=== PATIENT | male | born 1960 | race African-American/Black ===

== ENCOUNTER 2017-01-24 18:52 | Emergency (ER) | payer BC, OTHER ==
[~2017-01-24] VITALS: Ht 185.4 cm; Wt 132.0 kg
[~2017-01-24 18:52] MED LIST: EZET10TA3 PO; IBUP400T22 PO
[2017-01-24 18:59] VITALS: Ht 185.4 cm; Wt 132.0 kg
[2017-01-24] MEDS ORDERED: TRIMETHOPRIM/SULFAMETHOX (DS) TAB PO ONE (19:30)
--- NOTE | 2017-01-24 19:51 | RADRPT ---
PROCEDURE: US DVT. CLINICAL INDICATION: Redness and swelling of the left leg TECHNIQUE: Multiple longitudinal and transverse images of the left lower extremity veins were obta ined with enamorado scale and color Doppler imaging. 2D grayscale measurements with compression, color D oppler flow, and augmentation was performed. The calf veins were interrogated as well. COMPARISON: No prior studies are available for comparison. FINDINGS: The left common femoral, superficial femoral and popliteal veins are normally compressible throughou t. Color flow demonstrates normal filling of the vessel. Normal waveforms are visualized and there is normal response to augmentation. The calf veins are visualized and are within normal limits. There is mild edema within the subcutaneous soft tissues within the calf. IMPRESSION: 1. No evidence of a deep vein thrombosis involving the left lower extremity. 2. Mild edema within the subcutaneous soft tissues within the calf. RPTAT: QQ .Ligia Melissa MD, Date Time Electronically viewed and signed by .Ligia Melissa MD, on 01/24/2017 19:51 .T/
[2017-01-24] MEDS ORDERED: SULF1TAB31 PO (20:34)
[2017-01-24 20:38] VITALS: BP 142/64; PULSE 83; RESP 18; TEMP 98
--- NOTE | 2017-01-24 21:49 | ERD ---
ER Documentation Chief Complaint Date/Time DATE: 01/24/17 TIME: 21:48 Chief Complaint l calf and leg redness and swelling for past 2 weeks, pmd said go to er HPI Patient is a 56-year-old male with no medical problems who presents with left calf redness and swelling. He has had this for the past 2 weeks. He said that it started a few months ago when he was getting an itchy leg and he is scratching a lot. He was given Keflex by his primary doctor for the past 3 days but has had no fevers. He called his primary doctor today who sent him to the emergency department to rule out a DVT with ultrasound. Upon review of old medical records the patient one previous visit to the ER in 2006. ROS All systems reviewed and are negative except as per history of present illness. Medications Home Meds Active Scripts Sulfamethoxazole/Trimethoprim* (Bactrim Ds* Tablet) 1 Each Tablet, 1 TAB PO BID , #14 TAB Prov:JAMIE JAMESON MD 01/24/17 Reported Medications Ibuprofen* (Ibuprofen*) 400 Mg Tablet, 400 MG PO TID 06/23/11 Ezetimibe* (Zetia*) 10 Mg Tablet, 10 MG PO DAILY 06/23/11 Allergies Allergies: Coded Allergies: No Known Allergy (Verified , 06/23/11) PMhx/Soc History of Surgery: Yes (BIOPSY RIGHT LEG, LEFT EYE SURGERY) Anesthesia Reaction: No Hx Neurological Disorder: No Hx Respiratory Disorders: No Hx Cardiac Disorders: No Hx Psychiatric Problems: No Hx Miscellaneous Medical Probl: Yes (HIGH CHOLESTEROL) Hx Alcohol Use: No Hx Substance Use: No Hx Tobacco Use: No Smoking Status: Never smoker FmHx Family History: No diabetes Physical Exam Vitals Vital Signs Date Time Temp Pulse Resp B/P Pulse Ox O2 Delivery O2 Flow Rate FiO2 01/24/17 20:38 98.0 83 18 142/64 96 Room Air 01/24/17 18:59 99.2 96 18 169/79 96 Physical Exam Const: No acute distress Head: Atraumatic Eyes: Normal Conjunctiva ENT: Normal External Ears, Nose and Mouth. Neck: Full range of motion..~ No meningismus. Resp: Clear to auscultation bilaterally Cardio: Regular rate and rhythm, no murmurs Abd: Soft, non tender, non distended. Normal bowel sounds Skin: Redness and swelling to left lower extremity around the calf Back: No midline or flank tenderness Ext: No cyanosis, or edema Neur: Awake and alert Psych: Normal Mood and Affect Results 24 hrs Current Medications Medications (Trade) Dose Ordered Sig/Sangita Route PRN Reason Start Time Stop Time Status Last Admin Dose Admin Trimethoprim/ Sulfamethoxazole (Bactrim (Ds)) 1 tab ONCE ONCE PO 01/24/17 19:30 01/24/17 19:31 DC 01/24/17 19:28 Procedures/MDM Ultrasound of the left lower extremity is negative for DVT per radiology. Patient is a 56-year-old male presents with redness and swelling to the left calf. Ultrasound was negative for DVT. I believe this is a cellulitis. The patient is only taking Keflex prescribed by the primary doctor and therefore I will add Bactrim as there is a potential for MRSA. The patient was given the first dose of Bactrim in the emergency department. He should continue to take the Keflex. I do not think that he requires further workup or admission the hospital. He does not appear septic. I doubt abscess or necrotizing fasciitis at this time. Departure Diagnosis: Primary Impression: Cellulitis Site of cellulitis: extremity Site of cellulitis of extremity: lower extremity Laterality: left Qualified Code: L03.116 - Cellulitis of left lower extremity Condition: Fair Patient Instructions: Cellulitis Additional Instructions: Call your primary care doctor TOMORROW for an appointment during the next 1 WEEK.Tell the pathology secretary that you were referred from this facility.See the doctor sooner or return here if your condition worsens before your appointment time. JAMIE JAMESON MD Jan 24, 2017 21:49
== END 2017-01-24 20:38 | disposition home or self-care (01) ==
LOC: E/R 18:52
DX: L03.116 Cellulitis of left lower limb (principal)
CPT/HCPCS: 93971; Z7502; Z7610; 99284